=== PATIENT | female | born 1960 | race Caucasian/White ===

== ENCOUNTER 2016-12-24 08:27 | Day surgery (SDC) | payer MEDICARE ==
[2016-12-24] MEDS ORDERED: LIDOCAINE 1% W/EPI 1:200,000 MPF 30ML SQ ONE (11:01)
[2016-12-24] MEDS ORDERED: BUPIVACAINE 0.5% W/EPI MPF 30 ML VIAL IVP ONE (11:01)
[2016-12-24] MEDS ORDERED: DEXAMETHASONE PRESERVATIVE FREE 10MG/ML VIAL IV ONE (11:01)
[2016-12-24] MEDS ORDERED: PROPOFOL 10 MG/ML VIAL IV ONE (16:14)
[2016-12-24] MEDS ORDERED: LIDOCAINE 2% MDV (20MG/ML) 20ML VIAL IV ONE (16:14)
[2016-12-24] MEDS ORDERED: MIDAZOLAM HCL 2MG/2ML VIAL IV ONE (16:14)
[2016-12-24] MEDS ORDERED: ALFENTANIL HCL 500 MCG/1ML, 2ML AMP IV ONE (16:14)
--- NOTE | 2016-12-25 15:37 | Operative Note - [place] ---
DATE OF SURGERY: 12/24/16 PREOPERATIVE DIAGNOSIS: CERVICAL SPONDYLOSIS WITHOUT MYELOPATHY, ICD-10 CODE = M47.812. OPERATION: RADIOFREQUENCY RHIZOTOMY BILATERAL CERVICAL FACETS 4/5 AND 5/6. SURGEON: ALANNA CASTRO D.O. ANESTHESIA: LOCAL SEDATION. ANESTHESIA PROVIDER: ELI BACK CRNA. INDICATION: This patient presents with pain, which is neck and shoulder. Diagnostic studies show multiple levels of spondylosis. A facet series had resulted in 75-plus percent pain control. Due to the failure therapy and success of facet, she is here for rhizotomy. Due to the revised guidelines by her insurance limiting number of levels, instead of the 3-4 to 5-6 levels, she is having a 4-5 and 5-6 level bilateral. PROCEDURE: Intravenous line, vital sign monitoring, IV sedation. Prepped and draped in sterile technique. Facet levels at 4-5 and 5-6 were identified and marked bilaterally, infiltrated. Separate 22-gauge rhizotomy cannulae positioned bilateral. Stimulation trials conducted. Rhizotomy burn performed. Local with anti-inflammatory in the sites. Topical antibiotic and sterile dressing applied. We will monitor and evaluate. cc: Dr. Rodriguez JOB NUMBER: [id number] MTDD
== END 2016-12-24 10:40 | disposition home or self-care (01) ==
LOC: SUR 08:27
PROVIDERS: ATTEND Pain Medicine Interventional Pain Medicine
DX: M47.812 Spondylosis without myelopathy or radiculopathy, cervical region (principal); I10 Essential (primary) hypertension; K75.4 Autoimmune hepatitis; E78.00 Pure hypercholesterolemia, unspecified
CPT/HCPCS: 64633; 64634; 01935; J1100

== ENCOUNTER 2017-07-29 07:40 | Day surgery (SDC) | payer MEDICARE ==
[2017-07-29] MEDS ORDERED: BUPIVACAINE 0.5% W/EPI MPF 30 ML VIAL IVP ONE (07:41)
[2017-07-29] MEDS ORDERED: FENTANYL PF 100MCG/2ML VIAL IV ONE (07:41)
[2017-07-29] MEDS ORDERED: MIDAZOLAM HCL 2MG/2ML VIAL IV ONE (07:41)
[2017-07-29] MEDS ORDERED: LIDOCAINE 1% W/EPI 1:200,000 MPF 30ML SQ ONE (07:41)
[2017-07-29] MEDS ORDERED: PROPOFOL 10 MG/ML VIAL IV ONE (07:41)
[2017-07-29] MEDS ORDERED: LIDOCAINE 2% MDV (20MG/ML) 20ML VIAL IV ONE (07:41)
[2017-07-29] MEDS ORDERED: DEXAMETHASONE PRESERVATIVE FREE 10MG/ML VIAL IV ONE (07:41)
--- NOTE | 2017-07-29 20:25 | Operative Note - [place] ---
DATE OF SURGERY: 07/29/17. PREOPERATIVE DIAGNOSIS: CERVICAL SPONDYLOSIS WITHOUT MYELOPATHY, ICD-10 CODE = M47.812. SURGERY: RADIOFREQUENCY RHIZOTOMY BILATERAL CERVICAL FACETS 4-5 AND 5-6. SURGEON: ALANNA CASTRO D.O. ANESTHESIA: LOCAL SEDATION. ANESTHESIA PROVIDER: ELI BACK CRNA INDICATION: This patient presents with pain, which is in his neck. Examination shows diffuse tenderness in the cervical spine. Range of motion causes pain to the neck with extension. Diagnostics show diffuse multiple levels of spondylosis. A facet series with 75-80% pain control. Due to the failure of therapy and the success of the facet series, the patient presents today for rhizotomy for more long-term relief. SURGERY: Intravenous line, vital sign monitoring, IV sedation by Anesthesia. Patient positioned prone. Sterile prep, sterile technique. Under imaging, the cervical facets at 4-5 and 5-6 were identified and marked bilaterally. Skin infiltrated. A #22 gauge rhizotomy cannula positioned. Stimulation trials conducted. Rhizotomy burn performed. Local with anti-inflammatory into the sites. Topical antibiotics, sterile dressing was applied. Will monitor and evaluate. cc: Dr. Noah Dickson JOB NUMBER: [id number] MTDD
== END 2017-07-29 10:05 | disposition home or self-care (01) ==
LOC: SUR 07:40
PROVIDERS: ATTEND Pain Medicine Interventional Pain Medicine
DX: M47.812 Spondylosis without myelopathy or radiculopathy, cervical region (principal); I10 Essential (primary) hypertension; E78.00 Pure hypercholesterolemia, unspecified; F90.9 Attention-deficit hyperactivity disorder, unspecified type
CPT/HCPCS: 64633; 64634; 01936; J1100; J3010

== ENCOUNTER 2018-11-11 07:12 | Day surgery (SDC) | payer MEDICARE ==
[2018-11-11] MEDS ORDERED: LIDOCAINE 2% MDV (20MG/ML) 20ML VIAL IV ONE (07:13)
[2018-11-11] MEDS ORDERED: PROPOFOL 10 MG/ML VIAL IV ONE (07:13)
--- NOTE | 2018-11-12 09:50 | Operative Note ---
OPERATION: Screening COLONOSCOPY. PREOPERATIVE DIAGNOSIS: Prior history of fair preparation. POSTOPERATIVE DIAGNOSIS: Normal exam. PREPARATION QUALITY: Good. SPECIMENS: None. ESTIMATED BLOOD LOSS: None. COMPLICATIONS: None apparent. PROCEDURE: After informed consent was obtained from the patient, she was placed in the left lateral decubitus position in the endoscopy suite, sedated and monitored by the department of anesthesia. Digital rectal exam was unremarkable. A well-lubricated [id number] colonoscope was inserted into the rectum and advanced to the cecum. Preparation quality was good. The cecum, cecal bulb, ileocecal valve, appendiceal orifice, ascending colon, transverse colon, descending colon, sigmoid colon, and rectum were free of inflammatory changes, mass lesions, or polyps. Forward and J-turn views of the rectum and anorectum were unremarkable. The endoscope was straightened, the rectal ampulla deflated, and the endoscope was removed. RECOMMENDATIONS: Based on her average risk, negative exam, and on polyps found on previous exams, I would recommend a repeat exam in 10 years or sooner should symptoms warrant. As always, thank you for allowing me to participate in the healthcare of your patients. ANTHONY
== END 2018-11-11 09:18 | disposition home or self-care (01) ==
LOC: HOP 07:12
PROVIDERS: ATTEND Internal Medicine Gastroenterology
DX: Z12.11 Encounter for screening for malignant neoplasm of colon (principal); Z86.010 Personal history of colon polyps; I10 Essential (primary) hypertension; E78.00 Pure hypercholesterolemia, unspecified; M54.2 Cervicalgia
CPT/HCPCS: 00812; G0105